=== PATIENT | female | born 1985 | race American Indian/Alaskan Native ===

== ENCOUNTER 2017-06-29 10:21 | Emergency (ER) | payer BC ==
--- NOTE | 2017-06-29 11:22 | Emergency Department Report ---
Entered by SHAD NAJERA, acting as scribe for QUYEN BIGGS NP. Chief Complaint: Urogenital-Female Stated Complaint: MISCARRIAGE SYMPTOMS Time Seen by Provider: 06/29/17 11:11 - HPI History of Present Illness: 32 y/o female with Hx of DM, presents with vaginal bleeding that started 2 weeks ago, but worsened yesterday. Sx include generalized weakness. Pt notes she might be , but denies ever taking a test. She reports last a1c taken 3 weeks ago and was around 10. - ROS Review of Systems: +vaginal bleeding +generalized weakness - Exam Vital Signs: Vital Signs 06/29/17 11:11 Temperature 99.3 F Pulse Rate 87 Respiratory 20 Rate Blood Pressure 115/73 O2 Sat by Pulse 98 Oximetry Physical Exam: * female exam not conducted a and o x4 pt looks well, non-toxic MSE screening note: Focused history and physical exam performed. Due to findings the following was ordered: labs ED Disposition for MSE Condition: Stable This documentation as recorded by the scribe,SHAD NAJERA,accurately reflects the service I personally performed and the decisions made by ,QUYEN BIGGS , [employer].
[2017-06-29 11:34] LABS: Basophils % (Auto) 0.9 % (0.0-1.8); Hematocrit 39.6 % (30.3-42.9); Hemoglobin 13.3 gm/dl (10.1-14.3); Mean Corpuscular HGB Conc 34 % (30-34); Mean Corpuscular Hemoglobin 26 pg (28-32); Mean Corpuscular Volume 79 fl (79-97); Platelet Count 202 K/mm3 (140-440); Red Blood Count 5.03 M/mm3 (3.65-5.03); Red Cell Distribution Width 13.5 % (13.2-15.2); White Blood Count 5.6 K/mm3 (4.5-11.0)
[2017-06-29 11:55] LABS: Alanine Aminotransferase 14 units/L (7-56); Albumin/Globulin Ratio 1.3 %; Alkaline Phosphatase 73 units/L (35-129); Anion Gap 18 mmol/L; BUN/Creatinine Ratio 8.57; Blood Urea Nitrogen 6 mg/dL (7-17); Calcium 8.7 mg/dL (8.4-10.2); Carbon Dioxide 23 mmol/L (22-30); Chloride 102.9 mmol/L (98-107); Glucose 226 mg/dL (65-100); Sodium 140 mmol/L (137-145)
[2017-06-29 15:25] LABS: Bacteria,Urine 1+ /HPF (Negative); Bilirubin,Urine NEG (Negative); Blood,Urine LG (Negative); Ketones,Urine NEG (Negative); Leukocyte Esterase,Urine TR (Negative); Mucus,Urine FEW /HPF; Nitrite,Urine NEG (Negative); Urobilinogen,Urine < 2.0 mg/dL (<2.0)
--- NOTE | 2017-06-29 17:08 | Emergency Department Report ---
ED Abdominal Pain HPI - General Chief Complaint: Vaginal Bleeding Stated Complaint: MISCARRIAGE SYMPTOMS Time Seen by Provider: 06/29/17 11:11 Source: patient Mode of arrival: Ambulatory Limitations: No Limitations - History of Present Illness MD Complaint: abdominal pain -: Gradual Radiation: none Migration to: no migration Severity: moderate Severity scale (0 -10): 4 Quality: cramping, aching Consistency: intermittent Improves With: nothing Worsens With: nothing Associated Symptoms: denies: nausea, vomiting, diarrhea, fever, chills, constipation, dysuria, hematemesis, hematochezia, melena, hematuria, anorexia - Related Data Previous Rx's Medication Instructions Recorded Last Taken Type Diclofenac Sodium 75 mg PO BID #20 tablet. 06/29/17 Unknown Rx Allergies Allergy/AdvReac Type Severity Reaction Status Date / Time No Known Allergies Allergy Unverified 06/29/17 10:49 ED Review of Systems ROS: Stated complaint: MISCARRIAGE SYMPTOMS Other details as noted in HPI Comment: All other systems reviewed and negative ED Past Medical Hx - Past Medical History Hx Diabetes: Yes Additional medical history: Vaginal delivery x 1, Miscarriage in 2012 - Surgical History Past Surgical History?: No - Social History Smoking Status: Never Smoker Substance Use Type: Prescribed - Medications Home Medications: Home Medications Medication Instructions Recorded Confirmed Last Taken Type Diclofenac Sodium 75 mg PO BID #20 tablet. 06/29/17 Unknown Rx ED Physical Exam - General Limitations: No Limitations General appearance: alert, in no apparent distress - Head Head exam: Present: atraumatic, normocephalic - Eye Eye exam: Present: normal appearance - ENT ENT exam: Present: mucous membranes moist - Neck Neck exam: Present: normal inspection - Respiratory Respiratory exam: Present: normal lung sounds bilaterally. Absent: respiratory distress - Cardiovascular Cardiovascular Exam: Present: regular rate, normal rhythm. Absent: systolic murmur, diastolic murmur, rubs, gallop - GI/Abdominal GI/Abdominal exam: Present: soft, normal bowel sounds - Extremities Exam Extremities exam: Present: normal inspection - Back Exam Back exam: Present: normal inspection - Neurological Exam Neurological exam: Present: alert, oriented X3 - Psychiatric Psychiatric exam: Present: normal affect, normal mood - Skin Skin exam: Present: warm, dry, intact, normal color. Absent: rash ED Course Vital Signs 08/22/17 08/22/17 08/22/17 11:11 14:52 14:53 Temperature 99.3 F Pulse Rate 87 Respiratory 20 Rate Blood Pressure 115/73 129/84 O2 Sat by Pulse 98 100 100 Oximetry 06/29/17 06/29/17 06/29/17 14:54 14:55 14:57 Temperature Pulse Rate 77 79 Respiratory 15 15 Rate Blood Pressure 129/84 129/84 129/84 O2 Sat by Pulse 98 99 99 Oximetry 06/29/17 06/29/17 06/29/17 14:59 15:00 15:01 Temperature Pulse Rate 70 65 78 Respiratory 15 16 14 Rate Blood Pressure 129/84 119/78 119/78 O2 Sat by Pulse 98 99 99 Oximetry 06/29/17 06/29/17 06/29/17 15:03 15:05 15:07 Temperature Pulse Rate 75 66 69 Respiratory 16 14 14 Rate Blood Pressure 119/78 119/78 119/78 O2 Sat by Pulse 100 99 100 Oximetry 06/29/17 06/29/17 06/29/17 15:09 15:11 15:13 Temperature Pulse Rate 66 61 63 Respiratory 14 14 13 Rate Blood Pressure 119/78 119/78 119/78 O2 Sat by Pulse 100 100 100 Oximetry 06/29/17 06/29/17 06/29/17 15:15 15:17 15:19 Temperature Pulse Rate 62 91 H 93 H Respiratory 15 19 18 Rate Blood Pressure 134/92 134/92 134/92 O2 Sat by Pulse 100 100 99 Oximetry 06/29/17 06/29/17 06/29/17 15:21 15:23 15:25 Temperature Pulse Rate 69 69 69 Respiratory 15 13 15 Rate Blood Pressure 134/92 134/92 134/92 O2 Sat by Pulse 99 99 99 Oximetry 06/29/17 06/29/17 06/29/17 15:27 15:29 15:30 Temperature Pulse Rate 72 83 64 Respiratory 14 14 14 Rate Blood Pressure 134/92 134/92 120/83 O2 Sat by Pulse 99 99 99 Oximetry 06/29/17 06/29/17 06/29/17 15:31 15:33 15:35 Temperature Pulse Rate 65 65 66 Respiratory 12 15 14 Rate Blood Pressure 120/83 120/83 120/83 O2 Sat by Pulse 99 100 99 Oximetry 06/29/17 06/29/17 06/29/17 15:37 15:39 15:41 Temperature Pulse Rate 65 67 68 Respiratory 12 14 15 Rate Blood Pressure 129/84 129/84 129/84 O2 Sat by Pulse 99 99 98 Oximetry 06/29/17 06/29/17 06/29/17 15:43 15:45 15:47 Temperature Pulse Rate 79 66 65 Respiratory 13 13 18 Rate Blood Pressure 129/84 121/82 121/82 O2 Sat by Pulse 98 99 100 Oximetry 06/29/17 06/29/17 06/29/17 15:49 15:51 15:53 Temperature Pulse Rate 67 64 70 Respiratory 19 12 12 Rate Blood Pressure 121/82 121/82 121/82 O2 Sat by Pulse 99 99 100 Oximetry 06/29/17 06/29/17 06/29/17 15:55 15:57 15:59 Temperature Pulse Rate 59 L 68 69 Respiratory 19 13 14 Rate Blood Pressure 121/82 121/82 121/82 O2 Sat by Pulse 98 98 99 Oximetry 06/29/17 06/29/17 06/29/17 16:00 16:01 16:03 Temperature Pulse Rate 67 73 73 Respiratory 11 L 13 13 Rate Blood Pressure 120/84 120/84 120/84 O2 Sat by Pulse 99 99 Oximetry 06/29/17 06/29/17 06/29/17 16:05 16:07 16:09 Temperature Pulse Rate 67 65 65 Respiratory 13 16 16 Rate Blood Pressure 120/84 120/84 120/84 O2 Sat by Pulse 99 100 99 Oximetry 06/29/17 06/29/17 06/29/17 16:11 16:13 16:15 Temperature Pulse Rate 66 84 67 Respiratory 10 L 18 12 Rate Blood Pressure 120/84 120/84 124/88 O2 Sat by Pulse 99 100 100 Oximetry 06/29/17 06/29/17 06/29/17 16:17 16:19 16:21 Temperature Pulse Rate 84 78 74 Respiratory 15 10 L 11 L Rate Blood Pressure 124/88 124/88 124/88 O2 Sat by Pulse 100 100 98 Oximetry 06/29/17 06/29/17 16:23 16:25 Temperature Pulse Rate 69 65 Respiratory 13 13 Rate Blood Pressure 124/88 124/88 O2 Sat by Pulse 99 100 Oximetry ED Medical Decision Making - Lab Data Result diagrams: 06/29/17 11:21 06/29/17 11:21 - Medical Decision Making patient doing well, pain better , labs negative , no , will dc with proper follow up. Critical care attestation.: If time is entered above; I have spent that time in minutes in the direct care of this critically ill patient, excluding procedure time. ED Disposition Clinical Impression: Vaginal bleeding, Abdominal pain Disposition: DC-01 TO HOME OR SELFCARE Is pt being admited?: No Does the pt Need Aspirin: No Condition: Good Prescriptions: Diclofenac Sodium 75 mg PO BID #20 tablet. Referrals: DR ANKIT [Other] - 3-5 Days Forms: Work/School Release Form(ED) Time of Disposition: 17:07
[2017-06-29 17:21] VITALS: BP 116/79
== END 2017-06-29 17:25 | disposition home or self-care (01) ==
LOC: ED 10:21
DX: N93.8 Other specified abnormal uterine and vaginal bleeding (principal); R10.9 Unspecified abdominal pain; E11.9 Type 2 diabetes mellitus without complications
CPT/HCPCS: 36415; 80053; 81001; 84703; 85025; 99283